=== PATIENT | male | born 1980 | race American Indian/Alaskan Native ===

== ENCOUNTER 2018-07-11 19:10 | Outpatient (CLI) | payer MEDICAID | END 2018-07-11 19:11 | disposition home or self-care (01) | LOC: C.SLEEP 19:11 ==

== ENCOUNTER 2018-07-17 19:38 | Outpatient (CLI) | payer MEDICAID | END 2018-07-17 19:39 | disposition home or self-care (01) | LOC: C.SLEEP 19:38 | DX: R06.83 Snoring (principal); J45.20 Mild intermittent asthma, uncomplicated; Z68.37 Body mass index [BMI] 37.0-37.9, adult ==